=== PATIENT | female | born 1950 | race Caucasian/White ===

== ENCOUNTER 2017-01-04 12:27 | Day surgery (SDC) | payer OTHER ==
[~2017-01-04] VITALS: Ht 162.6 cm; Wt 125.1 kg
[~2017-01-04 12:27] MED LIST: ALLEGRA ALLERG180 MG PO; APRESOLINE50 MG PO; COUMADIN2.5 MG PO; DIOVAN HCT 31 TABLE1 PO; DULERA 200 MCG/13 GM IH; FLONASE16 G1 BOTH NARES; GLUCOPHAGE1000 MG PO; HUMALOG100 UNIT/2 SC; HUMULIN R500 UNITS/ SC; IMODIUM MS REL1 EACH PO; IRON325 M1 PO; KLOR-CON 1010 ME1 PO; LASIX40 MG PO; LORCET PLUS 7.1 EACH PO; LYRICA75 MG PO; METFORMIN HCL1000 MG PO; MIRAPEX0.25 MG PO; NORVASC10 MG PO; PERCOCET 5/31 TABLET PO; PREVACID30 MG PO; PROAIR RESPICL90 MCG IH; PROVENTIL,2.5 MG/3 M IH; REGLAN10 MG PO; SINGULAIR10 MG PO; SPIRIVA1 INHALATI IH; TENORMIN50 MG PO; TOVIAZ8 MG PO; VISTARIL25 MG PO; XALATAN2.5 ML BOTH EYES; ZETIA10 MG PO
[2017-01-04 13:08] LABS: POINT-OF-CARE METER ID UU14174212
== END 2017-01-04 15:20 | disposition home or self-care (01) ==
LOC: PAIN 12:27 → SDC 13:30 → PAIN 13:30
PROVIDERS: Anesthesiology Pain Medicine
DX: M47.896 Other spondylosis, lumbar region (principal); M54.5 Low back pain; E11.40 Type 2 diabetes mellitus with diabetic neuropathy, unspecified; E11.319 Type 2 diabetes mellitus with unspecified diabetic retinopathy without macular edema; F41.1 Generalized anxiety disorder; K21.9 Gastro-esophageal reflux disease without esophagitis; I10 Essential (primary) hypertension; G35 Multiple sclerosis; G47.33 Obstructive sleep apnea (adult) (pediatric); Z79.4 Long term (current) use of insulin
CPT/HCPCS: 82948; J1030; J2250; J3010; S0020

== ENCOUNTER 2017-01-11 10:29 | Day surgery (SDC) | payer OTHER ==
[~2017-01-11] VITALS: Ht 162.6 cm; Wt 124.3 kg
[~2017-01-11 10:29] MED LIST changes: +PROAIR HFA8.5 GM IH
[2017-01-11 12:42] LABS: POINT-OF-CARE METER ID UU14174212
== END 2017-01-11 13:25 | disposition home or self-care (01) ==
LOC: PAIN 10:29 → SDC 11:00 → PAIN 11:00
PROVIDERS: Anesthesiology Pain Medicine
DX: M47.896 Other spondylosis, lumbar region (principal); M54.5 Low back pain; F41.1 Generalized anxiety disorder; I10 Essential (primary) hypertension; E78.5 Hyperlipidemia, unspecified; J45.909 Unspecified asthma, uncomplicated; E11.40 Type 2 diabetes mellitus with diabetic neuropathy, unspecified; E11.319 Type 2 diabetes mellitus with unspecified diabetic retinopathy without macular edema; G35 Multiple sclerosis; G47.33 Obstructive sleep apnea (adult) (pediatric); Z79.4 Long term (current) use of insulin; Z79.51 Long term (current) use of inhaled steroids
CPT/HCPCS: 82948; J1030; J2250; J3010; S0020

== ENCOUNTER 2017-04-12 09:49 | Day surgery (SDC) | payer OTHER ==
[~2017-04-12] VITALS: Ht 162.6 cm; Wt 123.4 kg
[2017-04-12] MEDS ORDERED: ASMANEX TW200 MICROG BOTH NARES (11:31)
[2017-04-12] MEDS ORDERED: TOLTERODINE TART4 MG PO (11:32)
[2017-04-12 12:31] LABS: POINT-OF-CARE METER ID UU14174212
[2017-04-19 11:11] LABS: POINT-OF-CARE METER ID UU14174212
== END 2017-04-12 13:05 | disposition home or self-care (01) ==
LOC: PAIN 09:49 → SDC 11:00 → PAIN 11:00
PROVIDERS: Anesthesiology Pain Medicine
DX: M51.16 Intervertebral disc disorders with radiculopathy, lumbar region (principal); G62.9 Polyneuropathy, unspecified; M17.10 Unilateral primary osteoarthritis, unspecified knee; D64.9 Anemia, unspecified; J45.909 Unspecified asthma, uncomplicated; I25.10 Atherosclerotic heart disease of native coronary artery without angina pectoris; E11.40 Type 2 diabetes mellitus with diabetic neuropathy, unspecified; E11.319 Type 2 diabetes mellitus with unspecified diabetic retinopathy without macular edema; E78.5 Hyperlipidemia, unspecified; K21.9 Gastro-esophageal reflux disease without esophagitis; E78.4 Other hyperlipidemia; E66.01 Morbid (severe) obesity due to excess calories; Z68.42 Body mass index [BMI] 45.0-49.9, adult; G35 Multiple sclerosis; G47.33 Obstructive sleep apnea (adult) (pediatric); E53.8 Deficiency of other specified B group vitamins; J44.9 Chronic obstructive pulmonary disease, unspecified; Z79.82 Long term (current) use of aspirin; Z79.4 Long term (current) use of insulin; Z79.891 Long term (current) use of opiate analgesic; Z79.899 Other long term (current) drug therapy; Z88.2 Allergy status to sulfonamides; Z88.0 Allergy status to penicillin
CPT/HCPCS: 82948; J1100; J2250

== ENCOUNTER 2017-05-17 10:14 | Day surgery (SDC) | payer OTHER ==
[~2017-05-17] VITALS: Ht 162.6 cm; Wt 123.4 kg
[~2017-05-17 10:14] MED LIST changes: +ASMANEX TW200 MICROG BOTH NARES; +ELAVIL75 MG PO; +LASIX80 MG PO; +TOLTERODINE TART4 MG PO
[2017-05-17 12:18] LABS: POINT-OF-CARE METER ID UU13113694
== END 2017-05-17 12:53 | disposition home or self-care (01) ==
LOC: PAIN 10:14 → SDC 11:00 → PAIN 12:53
PROVIDERS: Anesthesiology Pain Medicine
DX: M47.26 Other spondylosis with radiculopathy, lumbar region (principal); M51.16 Intervertebral disc disorders with radiculopathy, lumbar region; M54.5 Low back pain; G89.29 Other chronic pain; I10 Essential (primary) hypertension; I48.91 Unspecified atrial fibrillation; G47.33 Obstructive sleep apnea (adult) (pediatric); K21.9 Gastro-esophageal reflux disease without esophagitis; E66.01 Morbid (severe) obesity due to excess calories; Z68.42 Body mass index [BMI] 45.0-49.9, adult; I25.10 Atherosclerotic heart disease of native coronary artery without angina pectoris; E11.40 Type 2 diabetes mellitus with diabetic neuropathy, unspecified; E11.319 Type 2 diabetes mellitus with unspecified diabetic retinopathy without macular edema; E78.5 Hyperlipidemia, unspecified; Z79.4 Long term (current) use of insulin; Z88.0 Allergy status to penicillin; Z96.652 Presence of left artificial knee joint; Z87.891 Personal history of nicotine dependence; Z88.2 Allergy status to sulfonamides; J45.909 Unspecified asthma, uncomplicated; Z79.84 Long term (current) use of oral hypoglycemic drugs
CPT/HCPCS: 82948; J1100; J2250; J3010

== ENCOUNTER 2017-06-07 10:34 | Inpatient (IN) | payer OTHER ==
[~2017-06-07] VITALS: Ht 162.6 cm; Wt 130.5 kg
[2017-10-21] MEDS ORDERED: HUMULIN R500 UNITS/ SC (14:08)
[2017-10-21] MEDS ORDERED: ZANAFLEX2 M1 PO (14:09)
[2017-10-24] MEDS ORDERED: NASONEX17 GM BOTH NARES (07:18)
[2017-10-24 07:30] LABS: POINT-OF-CARE METER ID UU14174212
[2017-10-24 07:51] VITALS: BP 131/60
[2017-10-24 12:51] LABS: POINT-OF-CARE METER ID UU13113675
[2017-10-24 14:30] VITALS: BP 136/59
[2017-10-24 14:44] LABS: POINT-OF-CARE METER ID UU13113712
[2017-10-24 17:22] LABS: POINT-OF-CARE METER ID UU13113712
[2017-10-24 20:35] VITALS: BP 146/65
[2017-10-24 22:02] LABS: POINT-OF-CARE METER ID UU13113712
[2017-10-24 23:45] VITALS: BP 148/67
[2017-10-25 04:08] VITALS: BP 131/88
[2017-10-25 06:27] LABS: HEMATOCRIT 32.7 % (36.0-46.0); MCV 89.3 FL (83-99)
[2017-10-25 06:49] LABS: ANION GAP 11 MEQ/L (2-14); CHLORIDE 104 MEQ/L (99-109); GFR ESTIMATE (CALCULATED) 44 mL/min/; POTASSIUM 4.2 MEQ/L (3.7-5.4); SAMPLE HEMOLYSIS CHECK 0; SAMPLE ICTERIC CHECK 0; SAMPLE LIPEMIA CHECK 0; SODIUM 141 MEQ/L (136-147); UREA NITROGEN (BUN) 27 mg/dL (9-23)
[2017-10-25 06:59] LABS: GLUCOSE 49 mg/dL (70-99)
[2017-10-25 07:30] LABS: POINT-OF-CARE METER ID UU13113712
[2017-10-25 08:00] VITALS: BP 163/71
[2017-10-25 11:22] LABS: POINT-OF-CARE METER ID UU13113712
[2017-10-25 12:22] VITALS: BP 134/83
[2017-10-25 16:22] VITALS: BP 173/75
[2017-10-25 16:51] LABS: POINT-OF-CARE METER ID UU13113712
[2017-10-25 20:35] VITALS: BP 182/75
[2017-10-25 21:54] LABS: POINT-OF-CARE METER ID UU13113712
[2017-10-26 00:20] VITALS: BP 176/73
[2017-10-26 04:17] VITALS: BP 146/66
[2017-10-26 06:15] LABS: HEMATOCRIT 29.4 % (36.0-46.0); MCV 88.6 FL (83-99)
[2017-10-26 07:40] LABS: POINT-OF-CARE METER ID UU13113712
[2017-10-26 08:36] VITALS: BP 152/65
[2017-10-26 12:00] VITALS: BP 177/75
[2017-10-26 12:30] LABS: POINT-OF-CARE METER ID UU13113712
[2017-10-26 16:29] VITALS: BP 169/73
[2017-10-26 16:36] LABS: POINT-OF-CARE METER ID UU13113712
[2017-10-26 17:08] LABS: ANION GAP 10 MEQ/L (2-14); CHLORIDE 97 MEQ/L (99-109); POTASSIUM 3.5 MEQ/L (3.7-5.4); SAMPLE HEMOLYSIS CHECK 0; SAMPLE ICTERIC CHECK 0; SAMPLE LIPEMIA CHECK 0; SODIUM 139 MEQ/L (136-147)
[2017-10-26 17:20] LABS: GFR ESTIMATE (CALCULATED) > 59 mL/min/; UREA NITROGEN (BUN) 21 mg/dL (9-23)
[2017-10-26 17:21] LABS: GLUCOSE 98 mg/dL (70-99)
[2017-10-26 20:28] VITALS: BP 188/79
[2017-10-26 21:53] LABS: POINT-OF-CARE METER ID UU13113712
[2017-10-27 00:10] VITALS: BP 139/61
[2017-10-27 02:30] LABS: POINT-OF-CARE METER ID UU13113712
[2017-10-27 04:22] VITALS: BP 176/70
[2017-10-27 05:40] LABS: POINT-OF-CARE METER ID UU13113712
[2017-10-27 07:36] LABS: POINT-OF-CARE METER ID UU13113712
[2017-10-27] MEDS ORDERED: ELIQUIS2.5 MG PO (07:59)
[2017-10-27] MEDS ORDERED: SENNA PLUS TAB1 EACH PO (07:59)
[2017-10-27] MEDS ORDERED: OXYCODONE HCL5 MG PO (07:59)
[2017-10-27 08:24] VITALS: BP 178/74
[2017-10-27 11:45] LABS: POINT-OF-CARE METER ID UU13113712
[2017-10-27 11:52] LABS: POINT-OF-CARE METER ID UU13113712
[2017-10-27 12:00] VITALS: BP 169/67
[2017-10-27 12:15] LABS: POINT-OF-CARE METER ID UU13113712
[2017-10-27 12:50] LABS: POINT-OF-CARE METER ID UU13113712
[2017-10-27 15:44] VITALS: BP 188/72
[2017-10-27 16:22] LABS: POINT-OF-CARE METER ID UU13113712
== END 2017-10-27 16:44 | DRG 470 ==
LOC: 2SOUTH → ENRESERV 10-23 21:50 → 2SOUTH 10-24 06:45 → 3WEST 10-24 06:45 → 2SOUTH 10-24 08:07 → 3WEST 10-24 14:08 → 2SOUTH 10-24 14:32 → 3WEST 10-27 13:58 → ENRESERV 10-27 14:25 → CANRESERV 10-27 15:11 → 3WEST 10-27 16:44
PROVIDERS: Internal Medicine Pulmonary Disease; Orthopaedic Surgery
PROC: 0SRC0J9 Replacement of Right Knee Joint with Synthetic Substitute, Cemented, Open Approach (ICD-10-PCS; principal; 2017-10-24)
PROC: 5A09357 Assistance with Respiratory Ventilation, Less than 24 Consecutive Hours, Continuous Positive Airway Pressure (ICD-10-PCS; 2017-10-25)
DX: M17.11 Unilateral primary osteoarthritis, right knee (principal); Z68.42 Body mass index [BMI] 45.0-49.9, adult; E66.01 Morbid (severe) obesity due to excess calories; I25.10 Atherosclerotic heart disease of native coronary artery without angina pectoris; E78.5 Hyperlipidemia, unspecified; G35 Multiple sclerosis; G47.33 Obstructive sleep apnea (adult) (pediatric); J44.9 Chronic obstructive pulmonary disease, unspecified; K21.9 Gastro-esophageal reflux disease without esophagitis; I10 Essential (primary) hypertension; Z87.891 Personal history of nicotine dependence; K58.9 Irritable bowel syndrome, unspecified; E11.42 Type 2 diabetes mellitus with diabetic polyneuropathy; Z96.652 Presence of left artificial knee joint; Z87.440 Personal history of urinary (tract) infections; E11.649 Type 2 diabetes mellitus with hypoglycemia without coma
CPT/HCPCS: 71010; 71020; 71275; 80048; 82948; 85014; 85018; 87641; 94640; 94640 76; 94799; 99202; C1713; J0131; J0330; J0690; J1170; J1815; J1885; J2250; J2405; J2710; J3010; J7030; J7050; J7120; L1820

== ENCOUNTER 2018-02-13 07:29 | Day surgery (SDC) | payer OTHER ==
[~2018-02-13] VITALS: Ht 162.6 cm; Wt 123.8 kg
[~2018-02-13 07:29] MED LIST changes: +ELIQUIS2.5 MG PO; +NASONEX17 GM BOTH NARES; +OXYCODONE HCL5 MG PO; +SENNA PLUS TAB1 EACH PO; +ZANAFLEX2 M1 PO
[2018-02-13] MEDS ORDERED: SPIRIVA18 MCG IH ×2 (07:47→07:48)
[2018-02-13] MEDS ORDERED: HUMULIN R500 UNITS/ SC ×2 (07:50→07:51)
[2018-02-13] MEDS ORDERED: GLUCOPHAGE1000 MG PO (08:06)
== END 2018-02-13 09:37 | disposition home or self-care (01) ==
LOC: PAIN 07:29 → SDC 08:00 → PAIN 09:37
PROVIDERS: Anesthesiology Pain Medicine
DX: M47.816 Spondylosis without myelopathy or radiculopathy, lumbar region (principal); M54.16 Radiculopathy, lumbar region; M47.812 Spondylosis without myelopathy or radiculopathy, cervical region; G89.29 Other chronic pain; I10 Essential (primary) hypertension; E11.319 Type 2 diabetes mellitus with unspecified diabetic retinopathy without macular edema; E11.40 Type 2 diabetes mellitus with diabetic neuropathy, unspecified; E78.5 Hyperlipidemia, unspecified; G35 Multiple sclerosis; E66.01 Morbid (severe) obesity due to excess calories; Z68.42 Body mass index [BMI] 45.0-49.9, adult; G47.33 Obstructive sleep apnea (adult) (pediatric); J44.9 Chronic obstructive pulmonary disease, unspecified; Z88.2 Allergy status to sulfonamides; Z88.0 Allergy status to penicillin; Z79.4 Long term (current) use of insulin; Z87.891 Personal history of nicotine dependence
CPT/HCPCS: 82948; J1030; J2250; S0020

== ENCOUNTER 2018-02-20 07:23 | Day surgery (SDC) | payer OTHER ==
[~2018-02-20] VITALS: Ht 162.6 cm; Wt 126.6 kg
[~2018-02-20 07:23] MED LIST changes: +SPIRIVA18 MCG IH
== END 2018-02-20 09:35 | disposition home or self-care (01) ==
LOC: PAIN 07:23 → SDC 08:00 → PAIN 09:35
PROVIDERS: Anesthesiology Pain Medicine
DX: M47.816 Spondylosis without myelopathy or radiculopathy, lumbar region (principal)
CPT/HCPCS: 82948; J1030; J2250; S0020